=== PATIENT | male | born 1935 | race Caucasian/White ===

== ENCOUNTER 2017-07-14 14:27 | Emergency (ER) | payer MEDICARE, BC ==
[2017-07-14 14:45] VITALS: BP 122/60
--- NOTE | 2017-07-14 16:23 | EDM.PDOC ---
ED HPI GENERAL MEDICAL PROBLEM - General Chief Complaint: Gastrointestinal Problem Stated Complaint: DIARRHEA, WEAK AND COUGH Time Seen by Provider: 07/14/17 15:07 Source of Information: Reports: Patient History Limitations: Reports: No Limitations - History of Present Illness INITIAL COMMENTS - FREE TEXT/NARRATIVE: 81 year old male presents with his for evaluation and treatment of fatigue , cough and diarrhea. Patient reports he has had diarrhea for the last 8 years. Will have up to 3 or 4 episodes per day. Does not have diarrhea daily. No melena or hematochezia. Patient also reports he has had a cough for several years. His feels over the last 3 days he has been more fatigued and possibly coughing more. States he on occasion will cough up some phlegm. Reports he did have one episode of posttussive emesis. No fevers, chest pain, abdominal pain, urinary symptoms, melena, hematochezia or hematemesis. Patient also reports a bloody nose about 2 or 3 weeks ago. This lasted about 4 hours and resolved with pressure. Did not require further intervention. Patient is dialysis patient he did have his run this morning. Daughter reports that his weight have been stable. Patient did not get a flu shot this year. left shoulder Pain Score (Numeric/FACES): 4 - Related Data Allergies Allergy/AdvReac Type Severity Reaction Status Date / Time No Known Allergies Allergy Verified 07/14/17 14:45 Home Meds: Home Meds Acetaminophen 1,000 mg PO QID PRN 07/14/17 [History] Allopurinol [Zyloprim] 100 mg PO DAILY 07/14/17 [History] Azithromycin [IMW: Azithromycin] 250 mg PO DAILY #6 tab 07/14/17 [Rx] Betamethasone Dipropionate [Diprosone 0.05% Crm] 1 applic TOP BID 07/14/17 [ History] Biotin/FA/Vit C/Vit B Complex [Nephrocaps] 1 tab PO DAILY 07/14/17 [History] Cholestyramine/Sucrose [Cholestyramine Packet] 4 gm PO BID 07/14/17 [History] Clobetasol Propionate [Temovate] 15 gm TP BID 07/14/17 [History] Darbepoetin Luis [Aranesp] 60 mcg IV WEEKLY 07/14/17 [History] Docusate Sodium 100 mg PO BID PRN 07/14/17 [History] Folic Acid 1 mg PO DAILY 07/14/17 [History] Furosemide [Lasix] 80 mg PO BIDD 07/14/17 [History] Iron Sucrose Complex [Venofer] 50 mg IV WEEKLY 07/14/17 [History] LORazepam [Ativan] 0.5 mg PO BEDTIME 07/14/17 [History] Levothyroxine [Synthroid] 200 mcg PO ACBREAKFAST 07/14/17 [History] Metoprolol Tartrate 100 mg PO BID 07/14/17 [History] Mupirocin Cream [Bactroban Crm] 1 applic TOP BID 07/14/17 [History] Mv-Mn/Lutein/Zeax/Bilber/Hb277 [Macular Health Formula Capsule] 1 each PO DAILY 07/14/17 [History] Omeprazole 40 mg PO DAILY 07/14/17 [History] Pravastatin Sodium [Pravastatin (Pravachol)] 20 mg PO DAILY 07/14/17 [History] Sevelamer Carbonate [Renvela] 800 mg PO TIDMEALS 07/14/17 [History] amLODIPine [Norvasc] 2.5 mg PO ASDIRECTED 07/14/17 [History] Past Medical History HEENT History: Reports: Epistaxis, Impaired Vision, Macular Degeneration, Other (See Below) Other HEENT History: blind Cardiovascular History: Reports: Afib, CAD, Cardiomyopathy, Heart Failure, Hypertension, Pacemaker, PTCA, Other (See Below) Other Cardiovascular History: aortic stenosis, hyperkalemia Respiratory History: Reports: Other (See Below) Other Respiratory History: SOB with exertion, wears oxygen at bedtime Gastrointestinal History: Reports: Chronic Diarrhea, Diverticulosis, Gastritis, Hemorrhoids, Hiatal Hernia, Other (See Below) Other Gastrointestinal History: dysphagia Genitourinary History: Reports: Dialysis, Renal Calculus, Other (See Below) Other Genitourinary History: ESRD, nephritis, kidney stones with removal Musculoskeletal History: Reports: Back Pain, Chronic, Osteoarthritis, Other ( See Below) Other Musculoskeletal History: chronic shoulder pain Endocrine/Metabolic History: Reports: Hypothyroidism Hematologic History: Reports: Anemia Other Hematologic History: hyperkalemia, bone marrow aspiration Oncologic (Cancer) History: Reports: Other (See Below) Other Oncologic History: skin Other Dermatologic History: skin cancer per pt - Past Surgical History Cardiovascular Surgical History: Reports: Coronary Artery Bypass, Valve Replacement, Vascular Surgery GI Surgical History: Reports: Colonoscopy Male Surgical History: Reports: Other (See Below) Other Male Surgeries/Procedures: has AV fistula to right arm, positive thrill /bruit Endocrine Surgical History: Reports: Parathyroidectomy Other Neurological Surgeries/Procedures: back surgeries Musculoskeletal Surgical History: Reports: Other (See Below) Oncologic Surgical History: Reports: Bone Marrow Aspiration Social & Family History - Family History Family Medical History: Noncontributory - Tobacco Use Smoking Status *Q: Never Smoker Years of Tobacco use: 20 Packs/Tins Daily: 1 Used Tobacco, but Quit: Yes Month Tobacco Last Used: nov Second Hand Smoke Exposure: No - Caffeine Use Caffeine Use: Reports: Coffee - Alcohol Use Days Per Week of Alcohol Use: 1 Number of Drinks Per Day: 1 Total Drinks Per Week: 1 - Recreational Drug Use Recreational Drug Use: No Drug Use in Last 12 Months: No - Living Situation & Occupation Living situation: Reports: Occupation: Retired ED ROS GENERAL - Review of Systems Review Of Systems: See Below Constitutional: Reports: Weakness, Fatigue. Denies: Fever HEENT: Reports: Nosebleed (several weeks ago which resolved with pressure) Respiratory: Reports: Cough, Sputum Cardiovascular: Denies: Chest Pain GI/Abdominal: Reports: Diarrhea, Vomiting (reports post tussive emesis). Denies : Abdominal Pain, Hematemesis, Hematochezia, Melena : Reports: No Symptoms. Denies: Dysuria ED EXAM, GI/ABD - Physical Exam Exam: See Below Exam Limited By: No Limitations General Appearance: Alert, WD/WN, No Apparent Distress Ears: Normal External Exam Nose: Normal Inspection Throat/Mouth: Normal Inspection, Normal Lips, Normal Voice, No Airway Compromise Neck: Normal Inspection Respiratory/Chest: No Respiratory Distress, Lungs Clear, Normal Breath Sounds Cardiovascular: Normal Peripheral Pulses, Regular Rate, Rhythm, No Murmur ( heart valve click) GI/Abdominal Exam: Soft, Non-Tender Neurological: Alert, Oriented, Normal Cognition Psychiatric: Normal Affect, Normal Mood Skin Exam: Warm, Dry, Normal Color EKG INTERPRETATION EKG Date: 07/14/17 Time: 15:40 EKG Interpretation Comments: Ventricular paced rhythm at 62 bpm. No acute changes. Reviewed by myself and Dr. Patterson. Course - Vital Signs Last Recorded V/S: Last Vital Signs Temp 36.4 C 07/14/17 14:32 Pulse 87 07/14/17 14:32 Resp 18 07/14/17 14:32 BP 122/60 07/14/17 14:32 Pulse Ox 95 07/14/17 14:32 - Orders/Labs/Meds Orders: Active Orders 24 hr Category Date Time Status Cardiac Monitoring [RC] . DIRECTED Care 07/14/17 15:14 Active EKG 12 Lead [EKG Documentation Completion] [RC] STAT Care 07/14/17 15:07 Active Chest 2V [CR] Stat Exams 07/14/17 15:06 Taken Labs: Laboratory Tests 07/14/17 07/14/17 Range/Units 15:45 15:45 WBC 10.46 H (4.23-9.07) K/mm3 RBC 3.57 L (4.63-6.08) M/mm3 Hgb 11.2 L (13.7-17.5) gm/L Hct 35.8 L (40.1-51.0) % MCV 100.3 H (79.0-92.2) fl MCH 31.4 (25.7-32.2) pg MCHC 31.3 L (32.2-35.5) g/dl RDW Std Deviation 50.5 H (35.1-43.9) fL Plt Count 213 (163-337) K/mm3 MPV 9.8 (9.4-12.3) fl Neutrophils % (Manual) 75 H (40-60) % Band Neutrophils % 0 (0-10) % Lymphocytes % (Manual) 9 L (20-40) % Atypical Lymphs % 0 % Monocytes % (Manual) 9 (2-10) % Eosinophils % (Manual) 4 (0.8-7.0) % Basophils % (Manual) 3 H (0.2-1.2) Platelet Estimate Adequate Plt Morphology Comment Normal Hypochromasia 1+ slight Poikilocytosis 1+ slight Target Cells 1+ slight Stomatocytes 1+ slight RBC Morph Comment Not Reportable Sodium 141 (136-145) mEq/L Potassium 3.8 (3.5-5.1) mEq/L Chloride 100 (98-107) mEq/L Carbon Dioxide 33 H (21-32) mEq/L Anion Gap 11.8 (5-15) BUN 11 (7-18) mg/dL Creatinine 2.6 H (0.7-1.3) mg/dL Est Cr Clr Drug Dosing 17.74 mL/min Estimated GFR (MDRD) 24 (>60) mL/min BUN/Creatinine Ratio 4.2 L (14-18) Glucose 106 (83-115) mg/dL Calcium 9.1 (8.5-10.1) mg/dL Magnesium 1.5 L (1.8-2.4) mg/dl Total Bilirubin 0.7 (0.2-1.0) mg/dL AST 20 (15-37) U/L ALT 13 L (16-63) U/L Alkaline Phosphatase 146 H (46-116) U/L Troponin I 0.041 (0.00-0.056) ng/mL NT-Pro-B Natriuret Pep > 58622 H (0-450) pg/mL Total Protein 7.9 (6.4-8.2) g/dl Albumin 3.3 L (3.4-5.0) g/dl Globulin 4.6 gm/dL Albumin/Globulin Ratio 0.7 L (1-2) - Radiology Interpretation Free Text/Narrative:: chest xray reviewed by myself and Dr. Patterson shows no acute changes. - Re-Assessments/Exams Free Text/Narrative Re-Assessment/Exam: 07/14/17 17:10 Influenza returned negative. I reviewed the labs and imaging with the patient. Will try him on a short course of azithromycin for early bronchitis. Follow-up next week with PCP. Return to the ER should symptoms change or worsen. Departure - Departure Time of Disposition: 17:14 Disposition: Home, Self-Care 01 Condition: Fair Clinical Impression: Upper respiratory infection - Discharge Information Prescriptions: Azithromycin [IMW: Azithromycin] 250 mg PO DAILY #6 tab Instructions: Upper Respiratory Infection, Adult, [id number] Referrals: Hilario King MD [Primary Care Provider] - Forms: ED Department Discharge Additional Instructions: take the azithromycin as prescribed. The 1 Followed by 1 Tab on days 2 to 5. Recommend Using your Oxygen That You Have at Home. Follow up with Dr. Metzger Next Week for Recheck your Symptoms. Follow Your Fluid Restrictions. Please Return to ER if your Symptoms Change or Worsen. - My Orders Last 24 Hours: My Active Orders 07/14/17 15:06 Chest 2V [CR] Stat 07/14/17 15:07 EKG 12 Lead [EKG Documentation Completion] [RC] STAT 07/14/17 15:14 Cardiac Monitoring [RC] . DIRECTED - Assessment/Plan Last 24 Hours: My Active Orders 07/14/17 15:06 Chest 2V [CR] Stat 07/14/17 15:07 EKG 12 Lead [EKG Documentation Completion] [RC] STAT 07/14/17 15:14 Cardiac Monitoring [RC] . DIRECTED
--- NOTE | 2017-07-16 09:23 | CR ---
Chest: Two views of the chest were obtained. Comparison: Previous chest x-ray of 08/08/16. Prior chest CT of 08/08/16 is also available. Elevated right hemidiaphragm is seen compatible with moderate sized pleural effusion. Increased parenchymal density is noted within the right lung base believed to represent atelectasis on a compressive basis from the pleural effusion. Left lung and right upper lung are clear. Heart size is slightly enlarged. Previous sternotomy for prosthetic heart valve is seen. Pacemaker is noted. Bony structures show slight degenerative change within the lower thoracic spine. Impression: 1. Moderately large pleural effusion on the right side causing compressive right basilar atelectasis. 2. Heart size at the upper limits of normal with other incidental findings. Diagnostic code #3
== END 2017-07-14 17:38 | disposition home or self-care (01) ==
LOC: JD.ED 14:27
DX: J06.9 Acute upper respiratory infection, unspecified (principal); I13.2 Hypertensive heart and chronic kidney disease with heart failure and with stage 5 chronic kidney disease, or end stage renal disease; I50.9 Heart failure, unspecified; N18.6 End stage renal disease; E03.9 Hypothyroidism, unspecified; Z99.2 Dependence on renal dialysis; Z95.1 Presence of aortocoronary bypass graft; Z87.891 Personal history of nicotine dependence; Z79.899 Other long term (current) drug therapy
CPT/HCPCS: 36415; 71020; 71020-26; 80053; 83735; 83880; 84484; 85025; 87804; 93005; 93010; 99283-25; 99284-25

== ENCOUNTER 2017-12-27 13:41 | Emergency (ER) | payer MEDICARE, BC ==
[2017-12-27] MEDS ORDERED: Sodium Chloride 0.9% 10 ML Syringe FLUSH PRN (14:23)
[2017-12-27] MEDS ORDERED: Piperacillin/Tazobactam 4.5 GM in Sodium Chloride 0.9% 100 ML IV ONE ×2 (14:24→15:30)
[2017-12-27] MEDS ORDERED: Vancomycin 500 MG SDV IV SCH (14:30)
--- NOTE | 2017-12-27 15:07 | CR ---
Chest: Portable view of the chest was obtained. Comparison: Prior chest x-ray of 07/14/17. Increasing density within the right mid and lower lung are seen from prior study. Heart is enlarged. Pulmonary vessels may be slightly congested. Probable right basilar pleural effusion is noted. Sternotomy and pacemaker is present. Bony structures are grossly intact. Impression: 1. Right-sided pleural effusion as well as increased parenchymal density. Please correlate if patient has symptoms to indicate pneumonia. 2. Pulmonary vessels appear to be slightly congested. 3. Cardiomegaly. Diagnostic code #3
[2017-12-27] MEDS ORDERED: Sodium Chloride 0.9% 250 ML IV ONE (15:29)
[2017-12-27] MEDS ORDERED: Magnesium Sulfate/Water 2 GM in Premix Bag 1 BAG IV ONE (15:35)
--- NOTE | 2017-12-27 16:12 | EDM.PDOC ---
ED HPI GENERAL MEDICAL PROBLEM - General Chief Complaint: Respiratory Problem Stated Complaint: FEVER/LOW OXYGEN LEVEL Time Seen by Provider: 12/27/17 15:00 Source of Information: Reports: Patient - History of Present Illness INITIAL COMMENTS - FREE TEXT/NARRATIVE: The patient is a 82-year-old male who comes in with a chief complaint of fever and generalized weakness. He has a history of bladder cancer. He is currently under the care of Dr. Nieves at [facility] in [place]. He is getting intravesical BCG therapy. He had a treatment yesterday. Starting last evening he started feeling poorly. He was noted to have a temperature of 102 at home. He just feels generally weak. States he always has a cough, he continues to have a cough but there is not any new cough at this time. Mild shortness of breath. He does have an oxygen requirement, which he states he's had intermittently due to fluid on his lungs from his renal disease and congestive heart failure. He also has end-stage renal disease and had dialysis this morning , states he did complete the full session. No vomiting. No diarrhea. He does not make any urine. Denies pain. Discussed his symptoms with his urologist and was encouraged to come here for further evaluation. - Related Data Allergies Allergy/AdvReac Type Severity Reaction Status Date / Time No Known Allergies Allergy Verified 12/27/17 14:18 Home Meds: Home Meds Acetaminophen 1,000 mg PO QID PRN 07/14/17 [History] Allopurinol [Zyloprim] 100 mg PO DAILY 07/14/17 [History] Azithromycin [IMW: Azithromycin] 250 mg PO DAILY #6 tab 07/14/17 [Rx] Betamethasone Dipropionate [Diprosone 0.05% Crm] 1 applic TOP BID 07/14/17 [ History] Biotin/FA/Vit C/Vit B Complex [Nephrocaps] 1 tab PO DAILY 07/14/17 [History] Cholestyramine/Sucrose [Cholestyramine Packet] 4 gm PO BID 07/14/17 [History] Clobetasol Propionate [Temovate] 15 gm TP BID 07/14/17 [History] Darbepoetin Luis [Aranesp] 60 mcg IV WEEKLY 07/14/17 [History] Docusate Sodium 100 mg PO BID PRN 07/14/17 [History] Folic Acid 1 mg PO DAILY 07/14/17 [History] Furosemide [Lasix] 80 mg PO BIDD 07/14/17 [History] Iron Sucrose Complex [Venofer] 50 mg IV WEEKLY 07/14/17 [History] LORazepam [Ativan] 0.5 mg PO BEDTIME 07/14/17 [History] Levothyroxine [Synthroid] 200 mcg PO ACBREAKFAST 07/14/17 [History] Metoprolol Tartrate 100 mg PO BID 07/14/17 [History] Mupirocin Cream [Bactroban Crm] 1 applic TOP BID 07/14/17 [History] Mv-Mn/Lutein/Zeax/Bilber/Hb277 [Macular Health Formula Capsule] 1 each PO DAILY 07/14/17 [History] Omeprazole 40 mg PO DAILY 07/14/17 [History] Pravastatin Sodium [Pravastatin (Pravachol)] 20 mg PO DAILY 07/14/17 [History] Sevelamer Carbonate [Renvela] 800 mg PO TIDMEALS 07/14/17 [History] amLODIPine [Norvasc] 2.5 mg PO ASDIRECTED 07/14/17 [History] Past Medical History HEENT History: Reports: Epistaxis, Impaired Vision, Macular Degeneration, Other (See Below) Other HEENT History: blind Cardiovascular History: Reports: Afib, CAD, Cardiomyopathy, Heart Failure, Hypertension, Pacemaker, PTCA, Other (See Below) Other Cardiovascular History: aortic stenosis, hyperkalemia Respiratory History: Reports: Other (See Below) Other Respiratory History: SOB with exertion, wears oxygen at bedtime Gastrointestinal History: Reports: Chronic Diarrhea, Diverticulosis, Gastritis, Hemorrhoids, Hiatal Hernia, Other (See Below) Other Gastrointestinal History: dysphagia Genitourinary History: Reports: Dialysis, Renal Calculus, Other (See Below) Other Genitourinary History: ESRD, nephritis, kidney stones with removal Musculoskeletal History: Reports: Back Pain, Chronic, Osteoarthritis, Other ( See Below) Other Musculoskeletal History: chronic shoulder pain Endocrine/Metabolic History: Reports: Hypothyroidism Hematologic History: Reports: Anemia Other Hematologic History: hyperkalemia, bone marrow aspiration Oncologic (Cancer) History: Reports: Other (See Below) Other Oncologic History: skin Other Dermatologic History: skin cancer per pt - Past Surgical History Cardiovascular Surgical History: Reports: Coronary Artery Bypass, Valve Replacement, Vascular Surgery GI Surgical History: Reports: Colonoscopy Male Surgical History: Reports: Other (See Below) Other Male Surgeries/Procedures: has AV fistula to right arm, positive thrill /bruit Endocrine Surgical History: Reports: Parathyroidectomy Other Neurological Surgeries/Procedures: back surgeries Musculoskeletal Surgical History: Reports: Other (See Below) Oncologic Surgical History: Reports: Bone Marrow Aspiration Social & Family History - Family History Family Medical History: Noncontributory - Tobacco Use Smoking Status *Q: Never Smoker - Caffeine Use Caffeine Use: Reports: Coffee - Living Situation & Occupation Living situation: Reports: Occupation: Retired ED ROS GENERAL - Review of Systems Review Of Systems: See Below Constitutional: Reports: Fever, Chills, Malaise, Weakness, Fatigue HEENT: Reports: No Symptoms Respiratory: Reports: Cough. Denies: Shortness of Breath Cardiovascular: Denies: Chest Pain Endocrine: Reports: Fatigue GI/Abdominal: Denies: Abdominal Pain, Vomiting : Denies: Flank Pain Musculoskeletal: Reports: No Symptoms Skin: Reports: No Symptoms Neurological: Reports: No Symptoms Psychiatric: Reports: No Symptoms Hematologic/Lymphatic: Reports: No Symptoms Immunologic: Reports: No Symptoms ED EXAM, GENERAL - Physical Exam Exam: See Below Exam Limited By: No Limitations General Appearance: Alert, Other (Chronically ill-appearing) Eye Exam: Bilateral Eye: Normal Inspection Ears: Normal External Exam Nose: Normal Inspection Throat/Mouth: Normal Inspection, Normal Oropharynx, Normal Voice, No Airway Compromise Head: Atraumatic, Normocephalic Neck: Normal Inspection, Supple Respiratory/Chest: No Respiratory Distress, Lungs Clear, Normal Breath Sounds, Chest Non-Tender Cardiovascular: Normal Peripheral Pulses, Regular Rate, Rhythm, No Edema, No Murmur GI/Abdominal: Soft, Non-Tender, No Distention. No: Rebound Back Exam: Normal Inspection Extremities: Normal Inspection Neurological: Alert, Oriented, Normal Cognition, No Motor/Sensory Deficits Psychiatric: Normal Affect, Normal Mood Skin Exam: Warm, Dry, Intact, Normal Color, No Rash Course - Vital Signs Last Recorded V/S: Last Vital Signs Temp 38.0 C 12/27/17 17:20 Pulse 61 12/27/17 14:07 Resp 22 H 12/27/17 17:20 BP 85/40 L 12/27/17 17:20 Pulse Ox 97 12/27/17 17:20 - Orders/Labs/Meds Orders: Active Orders 24 hr Category Date Time Status EKG Documentation Completion [RC] STAT Care 12/27/17 14:06 Active Peripheral IV Care [RC] . DIRECTED Care 12/27/17 14:23 Active Peripheral IV Care [RC] . DIRECTED Care 12/27/17 14:23 Active CULTURE BLOOD [BC] Stat Lab 12/27/17 14:51 Received CULTURE BLOOD [BC] Stat Lab 12/27/17 14:56 Received UA W/MICROSCOPIC [URIN] Stat Lab 12/27/17 14:23 Ordered Blood Culture x2 Reflex Set [OM.PC] Stat Oth 12/27/17 14:23 Ordered Peripheral IV Insertion Adult [OM.PC] Routine Oth 12/27/17 14:23 Ordered Labs: Laboratory Tests 12/27/17 12/27/17 12/27/17 Range/Units 14:34 14:34 14:51 WBC 7.66 (4.23-9.07) K/mm3 RBC 3.19 L (4.63-6.08) M/mm3 Hgb 10.5 L (13.7-17.5) gm/L Hct 32.3 L (40.1-51.0) % MCV 101.3 H (79.0-92.2) fl MCH 32.9 H (25.7-32.2) pg MCHC 32.5 (32.2-35.5) g/dl RDW Std Deviation 51.2 H (35.1-43.9) fL Plt Count 161 L (163-337) K/mm3 MPV 10.5 (9.4-12.3) fl Neut % (Auto) 81.5 H (34.0-67.9) % Lymph % (Auto) 4.4 L (21.8-53.1) % Terrell % (Auto) 13.4 H (5.3-12.2) % Eos % (Auto) 0.1 L (0.8-7.0) Baso % (Auto) 0.3 (0.1-1.2) % Neut # (Auto) 6.24 H (1.78-5.38) K/mm3 Lymph # (Auto) 0.34 L (1.32-3.57) K/mm3 Terrell # (Auto) 1.03 H (0.30-0.82) K/mm3 Eos # (Auto) 0.01 L (0.04-0.54) K/mm3 Baso # (Auto) 0.02 (0.01-0.08) K/mm3 Manual Slide Review Abnormal smear Sodium 143 (136-145) mEq/L Potassium 3.6 (3.5-5.1) mEq/L Chloride 103 (98-107) mEq/L Carbon Dioxide 34 H (21-32) mEq/L Anion Gap 9.6 (5-15) BUN 16 (7-18) mg/dL Creatinine 2.7 H (0.7-1.3) mg/dL Est Cr Clr Drug Dosing 17.97 mL/min Estimated GFR (MDRD) 23 (>60) mL/min BUN/Creatinine Ratio 5.9 L (14-18) Glucose 100 (83-115) mg/dL Lactic Acid 1.8 (0.4-2.0) mmol/L Calcium 8.4 L (8.5-10.1) mg/dL Magnesium 1.3 L (1.8-2.4) mg/dl Total Bilirubin 0.8 (0.2-1.0) mg/dL AST 26 (15-37) U/L ALT 20 (16-63) U/L Alkaline Phosphatase 129 H (46-116) U/L Troponin I 0.041 (0.00-0.056) ng/mL Total Protein 7.3 (6.4-8.2) g/dl Albumin 3.0 L (3.4-5.0) g/dl Globulin 4.3 gm/dL Albumin/Globulin Ratio 0.7 L (1-2) Lipase 173 (73-393) U/L Meds: Medications Discontinued Medications Generic Name Dose Route Start Last Admin Trade Name Freq PRN Reason Stop Dose Admin Piperacillin Sod/Tazobactam 100 mls @ 200 mls/hr 12/27/17 14:24 12/27/17 15: 46 Sod 4.5 gm/ Sodium Chloride IV 12/27/17 14:53 Not Given ONETIME ONE Piperacillin Sod/Tazobactam 100 mls @ 200 mls/hr 12/27/17 15:30 12/27/17 15: 42 Sod 4.5 gm/ Sodium Chloride IV 12/27/17 15:59 200 mls/hr ONETIME ONE Administration Vancomycin HCl 1 gm/ Sodium 250 mls @ 250 mls/hr 12/27/17 15:24 12/27/17 17: 12 Chloride IV 12/27/17 16:23 250 mls/hr ONETIME ONE Administration Sodium Chloride 250 mls @ 1,000 mls/hr 12/27/17 15:29 12/27/17 15:52 Normal Saline IV 12/27/17 15:43 400 mls/hr ONETIME ONE Infusion Magnesium Sulfate 2 gm/ Premix 50 mls @ 25 mls/hr 12/27/17 15:35 12/27/17 15: 50 IV 12/27/17 17:34 25 mls/hr ONETIME ONE Administration Sodium Chloride 10 ml 12/27/17 14:23 12/27/17 15:46 Saline Flush FLUSH 10 ml ASDIRECTED PRN Administration Keep Vein Open Vancomycin HCl 1,000 mg 12/27/17 14:30 12/27/17 15:46 Vancomycin IV Not Given Q12H VÍCTOR - Re-Assessments/Exams Free Text/Narrative Re-Assessment/Exam: 12/27/17 18:49 Chest x-ray shows a right lower lobe infiltrate and effusion. We will treat for pneumonia given his fever. He is mildly hypotensive here. Review of his blood pressures from his daughter's list suggests that he does have a chronically low running blood pressure, however he is actually hypotensive at this time. We'll start with 250 mL bolus. Labs including white count and lactate are normal. At this time he doesn't have a particularly tender belly, just minimal suprapubic tenderness. He does have a potential source with this abnormal chest x-ray for his fever. Because he requires dialysis, he can't be admitted here. Discussed with hospitalist at [facility] who accepts the patient for transfer. Patient will be transferred by ambulance. Departure - Departure Time of Disposition: 16:11 Disposition: DC/Tfer to [facility] 02 Clinical Impression: Pneumonia Qualifiers: Pneumonia type: due to unspecified organism Laterality: right Lung location: lower lobe of lung Qualified Code(s): J18.1 - Lobar pneumonia, unspecified organism Hypotension Qualifiers: Hypotension type: unspecified hypotension type Qualified Code(s): I95.9 - Hypotension, unspecified - Discharge Information Referrals: Hilario King MD [Primary Care Provider] - Forms: ED Department Discharge - My Orders Last 24 Hours: My Active Orders 12/27/17 14:06 EKG Documentation Completion [RC] STAT 12/27/17 14:23 Peripheral IV Care [RC] . DIRECTED Peripheral IV Care [RC] . DIRECTED UA W/MICROSCOPIC [URIN] Stat Blood Culture x2 Reflex Set [OM.PC] Stat Peripheral IV Insertion Adult [OM.PC] Routine 12/27/17 14:51 CULTURE BLOOD [BC] Stat 12/27/17 14:56 CULTURE BLOOD [BC] Stat - Assessment/Plan Last 24 Hours: My Active Orders 12/27/17 14:06 EKG Documentation Completion [RC] STAT 12/27/17 14:23 Peripheral IV Care [RC] . DIRECTED Peripheral IV Care [RC] . DIRECTED UA W/MICROSCOPIC [URIN] Stat Blood Culture x2 Reflex Set [OM.PC] Stat Peripheral IV Insertion Adult [OM.PC] Routine 12/27/17 14:51 CULTURE BLOOD [BC] Stat 12/27/17 14:56 CULTURE BLOOD [BC] Stat
[2017-12-27 17:47] VITALS: BP 85/40
== END 2017-12-27 17:20 ==
LOC: JD.ED 13:41
DX: J18.9 Pneumonia, unspecified organism (principal); I95.9 Hypotension, unspecified; Z85.51 Personal history of malignant neoplasm of bladder; I13.2 Hypertensive heart and chronic kidney disease with heart failure and with stage 5 chronic kidney disease, or end stage renal disease; I50.9 Heart failure, unspecified; Z99.2 Dependence on renal dialysis; Z79.899 Other long term (current) drug therapy
CPT/HCPCS: 36415; 71045; 80053; 83605; 83690; 83735; 84484; 85025; 87040; 93005; 96365; 96367; 96375; 99285; J2543; J3370; J7030; J7040; J7050; J3475

== ENCOUNTER 2018-03-28 18:25 | Emergency (ER) | payer MEDICARE, BC ==
[2018-03-28 19:00] VITALS: BP 92/51
[2018-03-28] MEDS ORDERED: Sodium Chloride 0.9% 500 ML IV ONE (20:02)
--- NOTE | 2018-03-28 20:07 | EDM.PDOC ---
ED HPI GENERAL MEDICAL PROBLEM - General Chief Complaint: Cardiovascular Problem Stated Complaint: SENT BY DR FLYNN POSSIBLY SEPTIC AND NEEDS FLUIDS Time Seen by Provider: 03/28/18 19:44 Source of Information: Reports: Patient, Family History Limitations: Reports: No Limitations - History of Present Illness INITIAL COMMENTS - FREE TEXT/NARRATIVE: Patient is a 82-year-old male presents ED with concerns of temperature of 100.3 and low blood pressure that he may be septic. Patient was recently evaluated by Dr. Flynn oncologist was Nir Mccall just prior to arrival. Patient is a history of bladder cancer and has been on renal dialysis for the past 8 years. He has not made any urine for the past 5 years as well. He is being evaluated today discuss starting radiation therapy this coming Monday for his cancer. Again blood pressure was found to be low and thus he was instructed to come to the ED for IV fluids and lab work. states blood pressure normally is in the 90s. Patient reports a cough and shortness of breath that is chronic and unchanged. He is weak and dizzy with standing. There is no chest pain, belly pain, increased swelling to his lower extremities, upper respiratory congestion , sore throat, or any additional complaints. Patient is on warfarin for A. fib. Cardiac meds include: Amlodipine, metoprolol , and Lasix. - Related Data Allergies Allergy/AdvReac Type Severity Reaction Status Date / Time No Known Allergies Allergy Verified 03/28/18 18:57 Home Meds: Home Meds Acetaminophen 1,000 mg PO QID PRN 07/14/17 [History] Allopurinol [Zyloprim] 100 mg PO DAILY 07/14/17 [History] Betamethasone Dipropionate [Diprosone 0.05% Crm] 1 applic TOP BID 07/14/17 [ History] Biotin/FA/Vit C/Vit B Complex [Nephrocaps] 1 tab PO DAILY 07/14/17 [History] Cholestyramine/Sucrose [Cholestyramine Packet] 4 gm PO BID 07/14/17 [History] Clobetasol Propionate [Temovate] 15 gm TP BID 07/14/17 [History] Darbepoetin Luis [Aranesp] 60 mcg IV WEEKLY 07/14/17 [History] Docusate Sodium 100 mg PO BID PRN 07/14/17 [History] Folic Acid 1 mg PO DAILY 07/14/17 [History] Furosemide [Lasix] 80 mg PO BIDD 07/14/17 [History] Iron Sucrose Complex [Venofer] 50 mg IV WEEKLY 07/14/17 [History] LORazepam [Ativan] 0.5 mg PO BEDTIME 07/14/17 [History] Levothyroxine [Synthroid] 200 mcg PO ACBREAKFAST 07/14/17 [History] Metoprolol Tartrate 100 mg PO BID 07/14/17 [History] Mupirocin Cream [Bactroban Crm] 1 applic TOP BID 07/14/17 [History] Mv-Mn/Lutein/Zeax/Bilber/Hb277 [Macular Health Formula Capsule] 1 each PO DAILY 07/14/17 [History] Omeprazole 40 mg PO DAILY 07/14/17 [History] Pravastatin Sodium [Pravastatin (Pravachol)] 20 mg PO DAILY 07/14/17 [History] Sevelamer Carbonate [Renvela] 800 mg PO TIDMEALS 07/14/17 [History] amLODIPine [Norvasc] 2.5 mg PO ASDIRECTED 07/14/17 [History] Past Medical History HEENT History: Reports: Epistaxis, Impaired Vision, Macular Degeneration, Other (See Below) Other HEENT History: blind Cardiovascular History: Reports: Afib, CAD, Cardiomyopathy, Heart Failure, Hypertension, Pacemaker, PTCA, Other (See Below) Other Cardiovascular History: aortic stenosis, hyperkalemia Respiratory History: Reports: Other (See Below) Other Respiratory History: SOB with exertion, wears oxygen at bedtime Gastrointestinal History: Reports: Chronic Diarrhea, Diverticulosis, Gastritis, Hemorrhoids, Hiatal Hernia, Other (See Below) Other Gastrointestinal History: dysphagia Genitourinary History: Reports: Dialysis, Renal Calculus, Other (See Below) Other Genitourinary History: ESRD, nephritis, kidney stones with removal Musculoskeletal History: Reports: Back Pain, Chronic, Osteoarthritis, Other ( See Below) Other Musculoskeletal History: chronic shoulder pain Endocrine/Metabolic History: Reports: Hypothyroidism Hematologic History: Reports: Anemia Other Hematologic History: hyperkalemia, bone marrow aspiration Oncologic (Cancer) History: Reports: Other (See Below) Other Oncologic History: skin Other Dermatologic History: skin cancer per pt - Past Surgical History Cardiovascular Surgical History: Reports: Coronary Artery Bypass, Valve Replacement, Vascular Surgery GI Surgical History: Reports: Colonoscopy Male Surgical History: Reports: Other (See Below) Other Male Surgeries/Procedures: has AV fistula to right arm, positive thrill /bruit Endocrine Surgical History: Reports: Parathyroidectomy Other Neurological Surgeries/Procedures: back surgeries Musculoskeletal Surgical History: Reports: Other (See Below) Oncologic Surgical History: Reports: Bone Marrow Aspiration Social & Family History - Family History Family Medical History: Noncontributory - Caffeine Use Caffeine Use: Reports: Coffee - Living Situation & Occupation Living situation: Reports: Occupation: Retired ED ROS GENERAL - Review of Systems Review Of Systems: See Below Constitutional: Reports: Fever, Chills, Malaise, Weakness, Fatigue, Decreased Appetite HEENT: Reports: No Symptoms Respiratory: Reports: Shortness of Breath (chronic), Cough (chronic) Cardiovascular: Reports: No Symptoms GI/Abdominal: Reports: No Symptoms : Reports: No Symptoms Musculoskeletal: Reports: No Symptoms Neurological: Reports: No Symptoms ED EXAM, GENERAL - Physical Exam Exam: See Below Exam Limited By: No Limitations General Appearance: Alert, WD/WN, No Apparent Distress Eye Exam: Bilateral Eye: Normal Inspection Ears: Hearing Grossly Normal Nose: Normal Inspection Throat/Mouth: Normal Voice, No Airway Compromise, Other (mildly dry oral mucosa. ) Neck: Normal Inspection, Non-Tender, Full Range of Motion Respiratory/Chest: No Respiratory Distress, Lungs Clear, Normal Breath Sounds, No Accessory Muscle Use, Chest Non-Tender, Other (Pacemaker left chest.) Cardiovascular: Normal Peripheral Pulses, Regular Rate, Rhythm, Systolic Murmur Peripheral Pulses: 2+: Radial (L), Radial (R) GI/Abdominal: Normal Bowel Sounds, Soft, Tender (slight tenderness to the suprapubic/left abdomen. (mild in nature)) Extremities: Normal Range of Motion, Non-Tender, Pedal Edema (1+ bilaterally. ) Neurological: Alert, Oriented, CN II-XII Intact, Normal Cognition, No Motor/ Sensory Deficits Psychiatric: Normal Affect, Normal Mood Skin Exam: Warm, Dry, Intact, Normal Color, No Rash Course - Vital Signs Last Recorded V/S: Last Vital Signs Temp 99.3 F 03/28/18 18:57 Pulse 70 03/28/18 18:57 Resp 18 03/28/18 18:57 BP 92/51 L 03/28/18 18:57 Pulse Ox 88 L 03/28/18 18:57 - Orders/Labs/Meds Labs: Laboratory Tests 03/28/18 03/28/18 03/28/18 Range/Units 20:30 20:30 20:30 WBC 8.36 (4.23-9.07) K/mm3 RBC 3.16 L (4.63-6.08) M/mm3 Hgb 9.5 L (13.7-17.5) gm/L Hct 30.2 L (40.1-51.0) % MCV 95.6 H (79.0-92.2) fl MCH 30.1 (25.7-32.2) pg MCHC 31.5 L (32.2-35.5) g/dl RDW Std Deviation 55.3 H (35.1-43.9) fL Plt Count 240 (163-337) K/mm3 MPV 10.0 (9.4-12.3) fl Neut % (Auto) 71.9 H (34.0-67.9) % Lymph % (Auto) 10.8 L (21.8-53.1) % Hartley % (Auto) 15.1 H (5.3-12.2) % Eos % (Auto) 1.2 (0.8-7.0) Baso % (Auto) 0.6 (0.1-1.2) % Neut # (Auto) 6.02 H (1.78-5.38) K/mm3 Lymph # (Auto) 0.90 L (1.32-3.57) K/mm3 Hartley # (Auto) 1.26 H (0.30-0.82) K/mm3 Eos # (Auto) 0.10 (0.04-0.54) K/mm3 Baso # (Auto) 0.05 (0.01-0.08) K/mm3 Manual Slide Review Abnormal smear PT 22.0 H (9.5-12.1) SECONDS INR 2.05 APTT 40 H (24-31) SECONDS Sodium (136-145) mEq/L Potassium (3.5-5.1) mEq/L Chloride (98-107) mEq/L Carbon Dioxide (21-32) mEq/L Anion Gap (5-15) BUN (7-18) mg/dL Creatinine (0.7-1.3) mg/dL Est Cr Clr Drug Dosing mL/min Estimated GFR (MDRD) (>60) mL/min BUN/Creatinine Ratio (14-18) Glucose (83-115) mg/dL Lactic Acid 1.7 (0.4-2.0) mmol/L Calcium (8.5-10.1) mg/dL Total Bilirubin (0.2-1.0) mg/dL AST (15-37) U/L ALT (16-63) U/L Alkaline Phosphatase (46-116) U/L Total Protein (6.4-8.2) g/dl Albumin (3.4-5.0) g/dl Globulin gm/dL Albumin/Globulin Ratio (1-2) Mycoplasma pneumon IgM (NEGATIVE) 03/28/18 03/28/18 Range/Units 20:30 20:30 WBC (4.23-9.07) K/mm3 RBC (4.63-6.08) M/mm3 Hgb (13.7-17.5) gm/L Hct (40.1-51.0) % MCV (79.0-92.2) fl MCH (25.7-32.2) pg MCHC (32.2-35.5) g/dl RDW Std Deviation (35.1-43.9) fL Plt Count (163-337) K/mm3 MPV (9.4-12.3) fl Neut % (Auto) (34.0-67.9) % Lymph % (Auto) (21.8-53.1) % Hartley % (Auto) (5.3-12.2) % Eos % (Auto) (0.8-7.0) Baso % (Auto) (0.1-1.2) % Neut # (Auto) (1.78-5.38) K/mm3 Lymph # (Auto) (1.32-3.57) K/mm3 Hartley # (Auto) (0.30-0.82) K/mm3 Eos # (Auto) (0.04-0.54) K/mm3 Baso # (Auto) (0.01-0.08) K/mm3 Manual Slide Review PT (9.5-12.1) SECONDS INR APTT (24-31) SECONDS Sodium 139 (136-145) mEq/L Potassium 3.8 (3.5-5.1) mEq/L Chloride 100 (98-107) mEq/L Carbon Dioxide 30 (21-32) mEq/L Anion Gap 12.8 (5-15) BUN 19 H (7-18) mg/dL Creatinine 2.6 H (0.7-1.3) mg/dL Est Cr Clr Drug Dosing 17.93 mL/min Estimated GFR (MDRD) 24 (>60) mL/min BUN/Creatinine Ratio 7.3 L (14-18) Glucose 108 (83-115) mg/dL Lactic Acid (0.4-2.0) mmol/L Calcium 8.3 L (8.5-10.1) mg/dL Total Bilirubin 0.6 (0.2-1.0) mg/dL AST 28 (15-37) U/L ALT 15 L (16-63) U/L Alkaline Phosphatase 156 H (46-116) U/L Total Protein 6.7 (6.4-8.2) g/dl Albumin 2.3 L (3.4-5.0) g/dl Globulin 4.4 gm/dL Albumin/Globulin Ratio 0.5 L (1-2) Mycoplasma pneumon IgM Negative (NEGATIVE) Meds: Medications Discontinued Medications Generic Name Dose Route Start Last Admin Trade Name Freq PRN Reason Stop Dose Admin Sodium Chloride 500 mls @ 999 mls/hr 03/28/18 20:02 03/28/18 20:13 Normal Saline IV 03/28/18 20:32 999 mls/hr .BOLUS ONE Administration - Re-Assessments/Exams Free Text/Narrative Re-Assessment/Exam: Upon examination patient is afebrile. Blood pressure 92/51. Also 70. O2 sats 88 % on supplemental oxygen. Patient has a history of PE and thus requires supplemental oxygen. He is on warfarin currently. Upon examination by oncologist just prior to arrival patient's temperature was 100.3. Blood pressure was low. Suggested IV fluids and further workup for sepsis be initiated. Patient chronically short of breath with a cough unchanged. No nausea no vomiting. He does not make urine. No pain to his belly noted. Continues to have loose stools as normal. No blood present. 03/28/18 22:07 IV established with NS 500 mL bolus. Blood cultures 2, chest x- ray two-view, CBC, INR, lactic acid, and mycoplasma. CXR reviewed with Dr. Kilgore: BIVentricular pacemaker, cardiomegaly, pulmary effusion right side, aortic valve replacement. Otherwise no acute findings. Final interpretation is pending. CBC 8.36, HGB 9.5, Platelet count 240 N% 71.9, N# 6.02, L% 10.8. INR 2.05. Lactic Acid 1.7. Mycoplasma negative. 2134 Blood pressure: 82/s. Additional IVF bolus initiated. 2211 Reassessment, patients BP is 87/s. Patient had a BM and has only mild discomfort to his abdomen. States this is chronic. Patient states he needs to have another BM. 03/28/18 22:30 I did speak with Dr[address] Raphael [facility] Onc[facility]. At this point does not believe patient will require admission. No concerns with labs. Believes patients low BP can be resolved with IVF's patient can be safely sent home. Patient has received 750mls of IVF's. BP at 2234 90/s. I will have Kat get the patient up and see how he tolerates standing with BP check. CMP reviewed: Sodium 139, potassium 3.8, carbon dioxide 30, AG 12.8, creatinine 2.6. 03/28/18 22:45 Patient's blood pressure with standing is 98/53 with a heart rate of 91. Patient has no symptoms with standing. He is ready be discharged home. Offered to administer remaining IV fluids. Patient declined and would like to go home. Discharge instructions as documented.The patient remained hemodynamically stable while under my care in the E.D. I discussed the concerning symptoms for which to returnto the E.D. with the patient/family. The patient/family verbalized understanding. All questions were answered. Departure - Departure Time of Disposition: 22:50 Disposition: Home, Self-Care 01 Condition: Good Clinical Impression: Volume depletion Hypotension Qualifiers: Hypotension type: unspecified hypotension type Qualified Code(s): I95.9 - Hypotension, unspecified Instructions: Hypotension, [id number], Dehydration, Adult, [id number], Rehydration, Adult Referrals: Hilario King MD [Primary Care Provider] - Forms: ED Department Discharge Additional Instructions: Blood pressure was low on initial examination. You received IV fluids while evaluated in the emergency room. Blood pressure response was appropriate and has elevated. All symptoms have resolved thus will be discharged home. Blood cultures were obtained. If for some reason bacteria do grow out you will be notified and started on antibiotics. Please followup with Dr. Flynn Oncologists with results tomorrow. Please return to the E.D. if you develop any new or worsening symptoms as discussed. Keep appt as scheduled with CVT for tomorrow.
--- NOTE | 2018-03-29 06:58 | CR ---
Chest: Two views of the chest were obtained. Comparison: Prior chest x-ray of 12/27/17. Decreased but not resolved right sided pleural effusion is seen when compared to prior chest x-ray. Increased lung markings are noted on the right side. Differential includes asymmetric pulmonary vascular congestion as well as bronchitis. Left lung is clear. Heart is enlarged. Pacemaker is noted. Sternotomy wires are present. Bony structures are unremarkable. Impression: 1. Decreased but not resolved right-sided pleural effusion from prior exam. 2. Increased right-sided lung markings with differential including asymmetric pulmonary vascular congestion versus bronchitis. Diagnostic code #3
== END 2018-03-28 22:30 | disposition home or self-care (01) ==
LOC: JD.ED 18:25
DX: I95.9 Hypotension, unspecified (principal); E86.9 Volume depletion, unspecified; I11.0 Hypertensive heart disease with heart failure; I50.9 Heart failure, unspecified; E03.9 Hypothyroidism, unspecified; I48.91 Unspecified atrial fibrillation; C67.9 Malignant neoplasm of bladder, unspecified; Z99.2 Dependence on renal dialysis; Z95.1 Presence of aortocoronary bypass graft; Z79.01 Long term (current) use of anticoagulants
CPT/HCPCS: 36415; 71046; 80053; 83605; 85025; 85610; 85730; 86738; 87040; 96360; 99284; J7040